=== PATIENT | female | born 1965 | race Caucasian/White ===

== ENCOUNTER 2016-09-18 10:11 | Outpatient (CLI) | payer BC | END 2016-09-18 10:12 | disposition home or self-care (01) | DX: E03.9 Hypothyroidism, unspecified (principal); E78.5 Hyperlipidemia, unspecified; E55.9 Vitamin D deficiency, unspecified ==

== ENCOUNTER 2017-05-12 08:09 | Outpatient (CLI) | payer BC ==
--- NOTE | 2017-05-13 02:35 | Ultrasound Report ---
EXAM: PELVIC ULTRASOUND EXAM DATE: 05/12/2017 09:39 AM. CLINICAL HISTORY: Menorrhagia. COMPARISON: 11/26/2013. TECHNIQUE: Realtime transabdominal pelvic scan performed to identify the uterus and adnexa and as an overview of other pelvic structures, followed by transvaginal scan to provide greater detail of the u terus and adnexa, with static image documentation. FINDINGS: Uterus: 9.4 x 3.4 x 5.3 cm, volume 90 cc. Anteverted position. Normal overall size and echotexture. Masses: None. Endometrium: 4 mm. Normal. Cervix: Unremarkable. Right Ovary: 3.6 x 1.7 x 1.9 cm, volume 5.9 cc. Normal echotexture and blood flow. Left Ovary: 3.7 x 1.6 x 2.4 cm, volume 7.5 cc. Normal echotexture and blood flow. Free Fluid: None. Other: Study limited by body habitus and bowel gas. IMPRESSION: 1. 4 mm thick endometrium. No focal mass or polyp. 2. No uterine fibroids. 3. Normal bilateral ovaries. No concerning adnexal findings. [facility] Referring Provider Line: [phone] SITE ID: [id number]
== END 2017-05-12 08:10 | disposition home or self-care (01) ==
LOC: DI 08:09
PROVIDERS: ATTEND Physician Assistant Medical
DX: N92.0 Excessive and frequent menstruation with regular cycle (principal); R93.8 Abnormal findings on diagnostic imaging of other specified body structures
CPT/HCPCS: 76830; 76856

== ENCOUNTER 2017-06-22 09:17 | Outpatient (CLI) | payer BC ==
--- NOTE | 2017-06-25 13:34 | Mammography Report ---
DIGITAL SCREENING MAMMOGRAM: 06/22/2017 CLINICAL INDICATION: A 51-year-old with history of implants for screening. TECHNIQUE: Routine CC and MLO projections were obtained of the breasts as well as bilateral implant displaced views. COMPARISON: 09/2015, 03/2013, 12/2011, 11/2010, 11/2009 FINDINGS: The breasts again demonstrate scattered fibroglandular densities bilaterally. Bilateral s ubglandular silicone implants are stable. No suspicious masses, clustered microcalcifications, or re gions of architectural distortion are identified. IMPRESSION: BENIGN FINDINGS. RECOMMENDATION: Routine annual screening unless otherwise clinically indicated. BIRADS CATEGORY 2 - BENIGN FINDINGS. STANDARD QUALIFYING STATEMENTS 1. This examination was reviewed with the aid of Computer-Aided Detection (CAD). 2. A negative or benign imaging report should not delay biopsy if clinically suspicious findings are present. Consider surgical consultation if warranted. More than 5% of cancers are not identified by i maging. 3. Dense breasts may obscure an underlying neoplasm. JOB #: [id number] EXT JOB #:[id number]
== END 2017-06-22 09:18 | disposition home or self-care (01) ==
LOC: DI.S 09:17
PROVIDERS: ATTEND Physician Assistant Medical
DX: Z12.31 Encounter for screening mammogram for malignant neoplasm of breast (principal); Z98.82 Breast implant status
CPT/HCPCS: 77067

== ENCOUNTER 2017-07-19 08:59 | Outpatient (CLI) | payer BC ==
[2017-07-19 12:29] LABS: ALBUMIN/GLOBULIN RATIO 1.1 (1.0-2.2); BILIRUBIN,TOTAL 0.5 mg/dL (0.2-1.0); BUN - BLOOD UREA NITROGEN 13 mg/dL (6-20); CALCIUM 9.1 mg/dL (8.5-10.3); CARBON DIOXIDE - CO2 25 mmol/L (21-32); CHLORIDE 102 mmol/L (101-111); CHOL/HDL RATIO 4.1 (<4.4); CHOLESTEROL 215 mg/dL; CREATININE 0.7 mg/dL (0.4-1.0); GFR - MDRD 89 (>89); GLUCOSE 110 mg/dL (70-100); HDL CHOLESTEROL 52 mg/dL; LDL/HDL RATIO 2.5 (<4.4); POTASSIUM 3.9 mmol/L (3.5-5.0); SODIUM 136 mmol/L (135-145); TOTAL PROTEIN 7.5 g/dL (6.7-8.2); TRIGLYCERIDES 168 mg/dL; VLDL CHOLESTEROL 34 mg/dL
== END 2017-07-19 09:00 | disposition home or self-care (01) ==
LOC: LAB.F 08:59
PROVIDERS: ATTEND Family Medicine
DX: Z00.00 Encounter for general adult medical examination without abnormal findings (principal); E78.5 Hyperlipidemia, unspecified; E55.9 Vitamin D deficiency, unspecified; E03.9 Hypothyroidism, unspecified
CPT/HCPCS: 36415; 80053; 80061; 82306; 84443

== ENCOUNTER 2018-04-03 07:54 | Outpatient (CLI) | payer BC ==
[2018-04-03 11:50] LABS: BASOPHILS % (AUTO) 0.6 %; EOSINOPHILS # (AUTO) 0.1 10^3/uL (0.0-0.7); EOSINOPHILS % (AUTO) 1.8 %; HGB - HEMOGLOBIN 13.5 g/dL (12.0-16.0); LYMPHOCYTES # (AUTO) 2.6 10^3/uL (1.5-3.5); LYMPHOCYTES % (AUTO) 33.6 %; MEAN CORPUSCULAR HEMOGLOBIN 30.8 pg (27.0-31.0); MEAN CORPUSCULAR HGB CONC 32.5 g/dL (32.0-36.0); MEAN CORPUSCULAR VOLUME 94.6 fL (81.0-99.0); MEAN PLATELET VOLUME 8.1 fL (7.9-10.8); MONOCYTES # (AUTO) 0.5 10^3/uL (0.0-1.0); MONOCYTES % (AUTO) 6.1 %; NEUTROPHILS # (AUTO) 4.6 10^3/uL (1.5-6.6); NEUTROPHILS % (AUTO) 57.9 %; PLT - PLATELET COUNT 274 10^3/uL (130-450); RED BLOOD COUNT 4.39 10^6/uL (4.20-5.40); RED CELL DISTRIBUTION WIDTH 13.3 % (12.0-15.0); WHITE BLOOD COUNT 7.9 x10^3/uL (4.8-10.8)
[2018-04-03 12:43] LABS: ALBUMIN 3.9 g/dL (3.2-5.5); ALBUMIN/GLOBULIN RATIO 1.2 (1.0-2.2); ALKALINE PHOSPHATASE 43 IU/L (42-121); ALT ALANINE AMINOTRANSFERASE 18 IU/L (10-60); AST ASPARTATE AMINOTRANSFERASE 17 IU/L (10-42); BILIRUBIN,TOTAL 0.6 mg/dL (0.2-1.0); BUN - BLOOD UREA NITROGEN 11 mg/dL (6-20); CALCIUM 9.1 mg/dL (8.5-10.3); CARBON DIOXIDE - CO2 28 mmol/L (21-32); CHLORIDE 101 mmol/L (101-111); CHOL/HDL RATIO 3.6 (<4.4); CHOLESTEROL 189 mg/dL; CREATININE 0.7 mg/dL (0.4-1.0); GFR - MDRD 89 (>89); GLUCOSE 104 mg/dL (70-100); HDL CHOLESTEROL 52 mg/dL; LDL CHOLESTEROL,CALCULATED 99 mg/dL; LDL/HDL RATIO 1.9 (<4.4); SODIUM 137 mmol/L (135-145); TOTAL PROTEIN 7.2 g/dL (6.7-8.2); VLDL CHOLESTEROL 38 mg/dL
== END 2018-04-03 07:55 | disposition home or self-care (01) ==
LOC: LAB.F 07:54
PROVIDERS: ATTEND Physician Assistant Medical
DX: E78.5 Hyperlipidemia, unspecified (principal); E55.9 Vitamin D deficiency, unspecified; E03.9 Hypothyroidism, unspecified; Z51.81 Encounter for therapeutic drug level monitoring
CPT/HCPCS: 36415; 80053; 80061; 82306; 83721; 84443; 85025

== ENCOUNTER 2018-06-24 14:47 | Outpatient (CLI) | payer BC | END 2018-06-24 14:48 | disposition home or self-care (01) | LOC: SC 14:47 | PROVIDERS: ATTEND Internal Medicine Pulmonary Disease | DX: G47.10 Hypersomnia, unspecified (principal); R06.83 Snoring; R41.89 Other symptoms and signs involving cognitive functions and awareness; G47.8 Other sleep disorders | CPT/HCPCS: 99203; 99212 ==

== ENCOUNTER 2018-08-05 19:37 | Outpatient (CLI) | payer BC | END 2018-08-05 19:38 | disposition home or self-care (01) | LOC: SC 19:37 | PROVIDERS: ATTEND Internal Medicine Pulmonary Disease | DX: G47.33 Obstructive sleep apnea (adult) (pediatric) (principal) | CPT/HCPCS: 95810 ==

== ENCOUNTER 2018-08-21 09:09 | Outpatient (CLI) | payer BC | END 2018-08-21 09:10 | disposition home or self-care (01) | LOC: SC 09:09 | PROVIDERS: ATTEND Nurse Practitioner Family | DX: G47.33 Obstructive sleep apnea (adult) (pediatric) (principal) | CPT/HCPCS: 99212; 99214 ==

== ENCOUNTER 2018-10-16 08:13 | Outpatient (CLI) | payer BC | END 2018-10-16 08:14 | disposition home or self-care (01) | LOC: SC 08:13 | PROVIDERS: ATTEND Nurse Practitioner Family | DX: G47.33 Obstructive sleep apnea (adult) (pediatric) (principal) | CPT/HCPCS: 99212; 99214 ==

== ENCOUNTER 2019-01-15 08:17 | Outpatient (CLI) | payer BC | END 2019-01-15 08:18 | disposition home or self-care (01) | LOC: SC 08:17 | PROVIDERS: ATTEND Nurse Practitioner Family | DX: G47.33 Obstructive sleep apnea (adult) (pediatric) (principal) | CPT/HCPCS: 99212; 99214 ==

== ENCOUNTER 2019-05-21 08:00 | Outpatient (CLI) | payer BC ==
[2019-05-21 10:13] LABS: BASOPHILS % (AUTO) 0.6 %; EOSINOPHILS # (AUTO) 0.2 10^3/uL (0.0-0.7); EOSINOPHILS % (AUTO) 2.3 %; HGB - HEMOGLOBIN 11.7 g/dL (12.0-16.0); LYMPHOCYTES # (AUTO) 2.6 10^3/uL (1.5-3.5); LYMPHOCYTES % (AUTO) 37.7 %; MEAN CORPUSCULAR HEMOGLOBIN 29.4 pg (27.0-31.0); MEAN CORPUSCULAR HGB CONC 31.5 g/dL (32.0-36.0); MEAN CORPUSCULAR VOLUME 93.2 fL (81.0-99.0); MEAN PLATELET VOLUME 10.8 fL (7.9-10.8); MONOCYTES # (AUTO) 0.4 10^3/uL (0.0-1.0); MONOCYTES % (AUTO) 5.4 %; NEUTROPHILS # (AUTO) 3.7 10^3/uL (1.5-6.6); NEUTROPHILS % (AUTO) 53.7 %; PLT - PLATELET COUNT 303 10^3/uL (130-450); RED BLOOD COUNT 3.98 10^6/uL (4.20-5.40); RED CELL DISTRIBUTION WIDTH 14.4 % (12.0-15.0); WHITE BLOOD COUNT 6.8 x10^3/uL (4.8-10.8)
[2019-05-21 10:30] LABS: BUN - BLOOD UREA NITROGEN 11 mg/dL (6-20); CALCIUM 9.1 mg/dL (8.5-10.3); CARBON DIOXIDE - CO2 29 mmol/L (21-32); CHLORIDE 103 mmol/L (101-111); CHOL/HDL RATIO 3.4 (<4.4); CHOLESTEROL 120 mg/dL; CREATININE 0.6 mg/dL (0.4-1.0); GFR - MDRD 105 (>89); GLUCOSE 91 mg/dL (70-100); HDL CHOLESTEROL 35 mg/dL; LDL CHOLESTEROL,CALCULATED 69 mg/dL; SODIUM 138 mmol/L (135-145); VLDL CHOLESTEROL 16 mg/dL
[2019-05-21 11:11] LABS: HB2 TOTAL 11.7 g/dL; HEMOGLOBIN A1C 0.45 g/dL; HEMOGLOBIN A1C % 5.7 % (4.6-6.2)
== END 2019-05-21 08:01 | disposition home or self-care (01) ==
LOC: LAB.S 08:00
PROVIDERS: ATTEND Physician Assistant Medical
DX: E78.5 Hyperlipidemia, unspecified (principal); Z51.81 Encounter for therapeutic drug level monitoring; Z79.899 Other long term (current) drug therapy; R73.01 Impaired fasting glucose; E03.9 Hypothyroidism, unspecified
CPT/HCPCS: 36415; 80048; 80061; 83036; 83721; 84443; 85025

== ENCOUNTER 2019-05-28 08:15 | Outpatient (CLI) | payer BC ==
[2019-05-28 09:10] VITALS: BP 104/70
--- NOTE | 2019-05-28 09:10 | SLEEP CARE CONSULTATION ---
Information from patient questionnaire entered by Arianna Ocampo. I have reviewed and concur with the information entered by Arianna Ocampo. This document represents the service I personally performed and the decisions made by me, Hamida Darnell, RN, MSN, SOCIAL STUDIES TEACHER. History of Present Illness Previous diagnosis: Severe, Obstructive Sleep Apnea-Hypopnea Syndrome AHI: 55.9 Reason for CPAP/BiPAP follow up: other (4 month) Equipment type: CPAP Equipment obtained from: [employer] Mask style: Nasal pillows Mask brand: Respironics Backup mask available: Yes Last cushion change: a few weeks ago HPI additional information: Camping adaptors for CPAP worked successfully. The patient is starting to notice some facial pressure in mornings after using CPAP for the past week. CPAP Compliance Data - Data Reviewed with Patient Average duration of nightly device use: 5.7 Compliance rate %: 85.6 (90 days) Current pressure setting (cmH2O): 8-12 Humidity settin Heated hose settin Average residual AHI: 2.0 Subjective Missed days of use due to: reports: travel, other (falling asleep after cuddling with spouse or forgetting to put mask on after using bathroom) Patient concerns: reports: other (sinus pressure in the AM). denies: aerop hagia, mask discomfort, air blowing in eyes, mask leak noise, condensation in mask/hose, nasal congestion, dry mouth, nose, throat, epistaxis Observed to snore while using device: No Current pressure setting perceived as: comfortable On therapy, patient: reports: sleeping better, awakening more refreshed, being more awake and alert during the day, more rested overall. denies: drowsiness while driving Initial [place] Sleepiness Scale score: 15 Current [place] Sleepiness Scale score: 8 Allergies and Home Medications Known drug allergies: Yes (sulfa) Home medication list reviewed: Yes Allergy and home medication list: Medication Name (generic/name brand) Strength & Dosage Zoloft 75mg tab one daily unknown medication for gallbladder to prevent gallstones Zocor (Simvastatin) 20mg tab one daily Abilify 5mg tab one daily Levothyroxine Sodium 137mcg tab one daily Vitamin D3 5000unit cap one daily Vitamin B-12 5000mcg once weekly doxycyline for rosacea 100mg bid ? calcium chewable bid Acidophilus probiotic daily Allergy List Sulfa Review of Systems Review of systems same as previous: Yes Physical Exam Blood Pressure: 104/70 Cuff size: long Heart Rate: 98 O2 Saturation: 60 Height: 5 ft 5.5 in Weight (kg): 213 lb 6.4 oz Weight change since last visit: lost 42 pounds Body Mass Index: 34.9 BMI Classification: Class 1 Impression and Plan 1. Obstructive Sleep Apnea-Hypopnea Syndrome, severe, with good treatment compliance and good apnea control. On CPAP therapy, the patient has better sleep quality and is more rested overall. Since she has lost significantly more weight and is noting pressure discomfort in sinuses, I will lower range of autoCPAP to [id number]. Her mean pressure now is 8.4cmH20 with 90% of 9.2cmH20. She is advised to contact me if the pressure change uncomfortable. She is feeling even more energetic with the continued weight loss. Since she is continuing to lose weight with goal of 60 more pounds, I will see her in 3 months for further adjustment of pressure. Symptoms to report discussed for earlier pressure adjustment. To prevent falling asleep without CPAP cuddling , I proposed a cuddling alarm. In addition, to prevent falling asleep after using the bathroom, she can put mask on pillow. Patient's apnea severity and rationale for treatment to reduce apnea, improve sleep quality and reduce cardiovascular and cerebrovascular events was reviewed. I also reviewed the benefit of consistent device use of CPAP for depression/anxiety. I again reviewed her sleep study results and she has significant oxygen desaturation in REM sleep thus advised to use CPAP with all sleep. * * Change CPAP pressure to 6-10 cmH2O * Notify me if snoring with mask or feeling that the pressure is too much or too little * Attempt to lose weight * Return for follow up in 3 months , or sooner if concerns arise I spent 100% of this 35 minute visit face to face with the patient with greater than 50% of this was spent time counseling the patient and coordination of care.
== END 2019-05-28 08:16 | disposition home or self-care (01) ==
LOC: SC 08:15
PROVIDERS: ATTEND Nurse Practitioner Family
DX: G47.33 Obstructive sleep apnea (adult) (pediatric) (principal)
CPT/HCPCS: 99212; 99214

== ENCOUNTER 2019-07-09 08:07 | Outpatient (CLI) | payer BC ==
[2019-07-09 10:35] LABS: BASOPHILS % (AUTO) 0.7 %; EOSINOPHILS # (AUTO) 0.1 10^3/uL (0.0-0.7); EOSINOPHILS % (AUTO) 1.8 %; HGB - HEMOGLOBIN 11.4 g/dL (12.0-16.0); LYMPHOCYTES # (AUTO) 2.3 10^3/uL (1.5-3.5); LYMPHOCYTES % (AUTO) 41.1 %; MEAN CORPUSCULAR HEMOGLOBIN 30.2 pg (27.0-31.0); MEAN CORPUSCULAR HGB CONC 31.7 g/dL (32.0-36.0); MEAN CORPUSCULAR VOLUME 95.5 fL (81.0-99.0); MEAN PLATELET VOLUME 10.3 fL (7.9-10.8); MONOCYTES # (AUTO) 0.3 10^3/uL (0.0-1.0); MONOCYTES % (AUTO) 4.8 %; NEUTROPHILS # (AUTO) 2.9 10^3/uL (1.5-6.6); NEUTROPHILS % (AUTO) 51.4 %; PLT - PLATELET COUNT 280 10^3/uL (130-450); RED BLOOD COUNT 3.77 10^6/uL (4.20-5.40); RED CELL DISTRIBUTION WIDTH 13.2 % (12.0-15.0); WHITE BLOOD COUNT 5.7 x10^3/uL (4.8-10.8)
[2019-07-09 11:22] LABS: FERRITIN 38.8 ng/mL (11.0-306.8)
[2019-07-09 11:36] LABS: HB2 TOTAL 11.6 g/dL; HEMOGLOBIN A1C 0.37 g/dL; HEMOGLOBIN A1C % 5.1 % (4.6-6.2)
[2019-07-09 11:49] LABS: ALBUMIN 3.8 g/dL (3.2-5.5); ALBUMIN/GLOBULIN RATIO 1.3 (1.0-2.2); ALKALINE PHOSPHATASE 64 IU/L (42-121); ALT ALANINE AMINOTRANSFERASE 14 IU/L (10-60); AST ASPARTATE AMINOTRANSFERASE 14 IU/L (10-42); BILIRUBIN,TOTAL 0.5 mg/dL (0.2-1.0); BUN - BLOOD UREA NITROGEN 12 mg/dL (6-20); CALCIUM 8.7 mg/dL (8.5-10.3); CARBON DIOXIDE - CO2 26 mmol/L (21-32); CHLORIDE 104 mmol/L (101-111); CHOL/HDL RATIO 3.4 (<4.4); CHOLESTEROL 124 mg/dL; CREATININE 0.5 mg/dL (0.4-1.0); GFR - MDRD 130 (>89); GLUCOSE 90 mg/dL (70-100); HDL CHOLESTEROL 37 mg/dL; IRON 72 ug/dL (28-170); LDL CHOLESTEROL,CALCULATED 72 mg/dL; LDL/HDL RATIO 1.9 (<4.4); SODIUM 138 mmol/L (135-145); TOTAL PROTEIN 6.7 g/dL (6.7-8.2); VLDL CHOLESTEROL 15 mg/dL
[2019-07-09 14:47] LABS: % IRON SATURATION 24 % (20-50); TOTAL IRON BINDING CAPACITY 308 ug/dL (250-450); TRANSFERRIN 220 mg/dL (192-382)
== END 2019-07-09 08:08 | disposition home or self-care (01) ==
LOC: LAB.S 08:07
PROVIDERS: ATTEND Nurse Practitioner Family
DX: K91.2 Postsurgical malabsorption, not elsewhere classified (principal)
CPT/HCPCS: 36415; 80053; 80061; 82306; 82607; 82728; 82747; 83036; 83540; 83721; 83970; 84425; 84443; 84466; 84590; 85025

== ENCOUNTER 2020-01-19 14:23 | Outpatient (CLI) | payer BC ==
--- NOTE | 2020-01-19 13:51 | SLEEP CARE CONSULTATION ---
Information from patient questionnaire entered by Katherine Worthington. I have reviewed and concur with the information entered by Katherine Worthington. This document represents the service I personally performed and the decisions made by me, Hamida Darnell, RN, MSN, REAL PROPERTY APPRAISER. History of Present Illness Service Date and Time: 01/19/2020 1330 Previous diagnosis: Severe, Obstructive Sleep Apnea-Hypopnea Syndrome AHI: 55.9 Reason for follow up: other (8 MONTH WITH PRESSURE CHANGE) Equipment type: CPAP Equipment obtained from: [employer] (getting supplies as needed) Mask style: Nasal pillows Backup mask available: Yes (old mask ) Last cushion change: 2 days agao CPAP Compliance Data - Data Reviewed with Patient Average duration of nightly device use: 6H 6M Compliance rate %: 82.2 Current pressure setting (cmH2O): 6-10 Humidity settin Heated hose settin Average residual AHI: 1.4 Average large leak: 1M 59S Subjective Patient concerns: denies: aerophagia, mask discomfort, air blowing in eyes, mask leak noise, condensation in mask/hose, nasal congestion, dry mouth, nose, throat, epistaxis, other Observed to snore while using device: No Current pressure setting perceived as: comfortable On therapy, patient: reports: sleeping better, awakening more refreshed, being more awake and alert during the day, more rested overall, other. denies: drowsiness while driving Initial [place] Sleepiness Scale score: 15 Current [place] Sleepiness Scale score: 7 Allergies and Home Medications Home medication list reviewed: No (no changes) Review of Systems Review of systems same as previous: Yes Physical Exam Height: 5 ft 5.5 in Weight: 204 lb (home weight ) Body Mass Index: 33.4 BMI Classification: Obese Impression and Plan 1. Obstructive Sleep Apnea-Hypopnea Syndrome, severe, with good treatment compliance and good apnea control. On CPAP therapy, the patient has better sleep quality and is more rested overall. Patient has lost 85 pounds in the past year after bariatric surgery. I discussed how significant weight loss affects her apnea risk and CPAP pressure requirements. Current pressure range should accommodate some weight loss. Symptoms to report for further PAP pressure adjustment discussed. I praised her weight loss. She is aware how obesity can also affect health risks. Patient's apnea severity and rationale for treatment to reduce apnea, improve sleep quality and reduce hypertension, cardiovascular and cerebrovascular events was reviewed. * Continue auto CPAP pressure at 6-10 cmH2O * Notify me if snoring with mask or feeling that the pressure is too much or too little * Continue to lose weight * Call this office if any problems using CPAP * Return for follow up in 1 year , or sooner if concerns arise Visit Type: Telehealth Phone Provider Statement: I spent 100% of the Telehealth Phone Call with the patient with greater than 50% spent counseling the patient and coordination of care.
== END 2020-01-19 14:24 | disposition home or self-care (01) ==
LOC: SC 14:23
PROVIDERS: ATTEND Nurse Practitioner Family
DX: G47.33 Obstructive sleep apnea (adult) (pediatric) (principal); E66.9 Obesity, unspecified; Z68.33 Body mass index [BMI] 33.0-33.9, adult

== ENCOUNTER 2020-10-04 07:55 | Outpatient (CLI) | payer BC ==
[2020-10-04 15:18] LABS: BASOPHILS % (AUTO) 0.5 %; EOSINOPHILS # (AUTO) 0.1 10^3/uL (0.0-0.7); EOSINOPHILS % (AUTO) 1.2 %; HGB - HEMOGLOBIN 12.1 g/dL (12.0-16.0); LYMPHOCYTES # (AUTO) 2.3 10^3/uL (1.5-3.5); LYMPHOCYTES % (AUTO) 37.4 %; MEAN CORPUSCULAR HEMOGLOBIN 29.7 pg (27.0-31.0); MEAN CORPUSCULAR VOLUME 95.6 fL (81.0-99.0); MEAN PLATELET VOLUME 10.3 fL (7.9-10.8); MONOCYTES # (AUTO) 0.3 10^3/uL (0.0-1.0); MONOCYTES % (AUTO) 5.6 %; NEUTROPHILS # (AUTO) 3.4 10^3/uL (1.5-6.6); NEUTROPHILS % (AUTO) 55.1 %; PLT - PLATELET COUNT 282 10^3/uL (130-450); RED BLOOD COUNT 4.08 10^6/uL (4.20-5.40); RED CELL DISTRIBUTION WIDTH 12.5 % (12.0-15.0); WHITE BLOOD COUNT 6.1 x10^3/uL (4.8-10.8)
[2020-10-04 15:56] LABS: FERRITIN 8.8 ng/mL (11.0-306.8)
[2020-10-04 15:59] LABS: ALBUMIN 3.9 g/dL (3.2-5.5); ALBUMIN/GLOBULIN RATIO 1.3 (1.0-2.2); BILIRUBIN,TOTAL 0.5 mg/dL (0.2-1.0); CALCIUM 8.9 mg/dL (8.5-10.3); CREATININE 0.6 mg/dL (0.4-1.0); TOTAL PROTEIN 6.8 g/dL (6.7-8.2)
== END 2020-10-04 07:56 | disposition home or self-care (01) ==
LOC: LAB.S 07:55
PROVIDERS: ATTEND Nurse Practitioner Family
DX: K91.2 Postsurgical malabsorption, not elsewhere classified (principal)
CPT/HCPCS: 36415; 80053; 82306; 82390; 82525; 82607; 82728; 82747; 83540; 83970; 84425; 84466; 84590; 84630; 85025

== ENCOUNTER 2020-10-15 11:58 | Outpatient (CLI) | payer BC ==
[2020-10-15 16:09] LABS: CALCIUM 9.1 mg/dL (8.5-10.3); CREATININE 0.8 mg/dL (0.4-1.0)
== END 2020-10-15 11:59 | disposition home or self-care (01) ==
LOC: LAB.S 11:58
PROVIDERS: ATTEND Nurse Practitioner Family
DX: K91.2 Postsurgical malabsorption, not elsewhere classified (principal); R79.89 Other specified abnormal findings of blood chemistry
CPT/HCPCS: 36415; 80048

== ENCOUNTER 2020-10-18 08:00 | Outpatient (CLI) | payer BC, OTHER ==
--- NOTE | 2020-10-19 12:55 | XRAY Report ---
PROCEDURE: Cervical Spine 2 View INDICATIONS: STRAIN OF MUSCLE AND TENDON OF THE NECK TECHNIQUE: 3 view(s) of the cervical spine were acquired. COMPARISON: None. FINDINGS: Bones: No fractures or dislocations to the T1 level. The lateral masses of C1 appear intact on the odontoid view. No suspicious bony lesions. Mild C5-C6 and C6-C7 degenerative disc disease. Soft tissues: No prevertebral soft tissue swelling. IMPRESSION: 1. Mild C5-C6 and C6-7 C7 degenerative disc disease. 2. No fracture. No acute osseous lesion. If there is continued clinical concern for pathology, then M RI should be considered for further evaluation. Reviewed by: Gwen Vasquez MD, PhD on 10/19/2020 12:54 PM PST Approved by: Gwen Vasquez MD, PhD on 10/19/2020 12:54 PM PST Station ID: [id number]
--- NOTE | 2020-10-19 12:57 | XRAY Report ---
PROCEDURE: Thoracic Spine 2 View INDICATIONS: STRAIN OF MUSCLE AND TENDON OF NECK TECHNIQUE: 3 views of the thoracic spine were acquired. COMPARISON: None. FINDINGS: Bones: No fractures or dislocations. No suspicious bony lesions. 12 pairs of ribs are noted, and a ppear intact where visualized. Mild mid thoracic spine degenerative disc disease. Soft tissues: No paravertebral stripe thickening. IMPRESSION: 1. Mild mid thoracic spine multilevel degenerative disc disease. 2. No fracture. No acute osseous lesion. If there is continued clinical concern for pathology, then M RI should be considered for further evaluation. Reviewed by: Gwen Vasquez MD, PhD on 10/19/2020 12:56 PM PST Approved by: Gwen Vasquez MD, PhD on 10/19/2020 12:56 PM PST Station ID: [id number]
== END 2020-10-18 23:59 | disposition home or self-care (01) ==
LOC: DI.S 08:00
PROVIDERS: ATTEND Emergency Medicine
DX: M51.34 Other intervertebral disc degeneration, thoracic region (principal); M50.322 Other cervical disc degeneration at C5-C6 level

== ENCOUNTER 2020-11-26 07:19 | Outpatient (CLI) | payer BC ==
[2020-11-26 15:17] LABS: BASOPHILS % (AUTO) 0.5 %; EOSINOPHILS # (AUTO) 0.1 10^3/uL (0.0-0.7); EOSINOPHILS % (AUTO) 1.2 %; HCT - HEMATOCRIT 40.1 % (37.0-47.0); HGB - HEMOGLOBIN 12.6 g/dL (12.0-16.0); LYMPHOCYTES # (AUTO) 2.2 10^3/uL (1.5-3.5); LYMPHOCYTES % (AUTO) 38.5 %; MEAN CORPUSCULAR HEMOGLOBIN 29.9 pg (27.0-31.0); MEAN CORPUSCULAR HGB CONC 31.4 g/dL (32.0-36.0); MEAN PLATELET VOLUME 10.5 fL (7.9-10.8); MONOCYTES # (AUTO) 0.3 10^3/uL (0.0-1.0); MONOCYTES % (AUTO) 5.4 %; NEUTROPHILS # (AUTO) 3.1 10^3/uL (1.5-6.6); NEUTROPHILS % (AUTO) 54.2 %; PLT - PLATELET COUNT 278 10^3/uL (130-450); RED BLOOD COUNT 4.22 10^6/uL (4.20-5.40); RED CELL DISTRIBUTION WIDTH 12.8 % (12.0-15.0); WHITE BLOOD COUNT 5.7 x10^3/uL (4.8-10.8)
[2020-11-26 16:15] LABS: THYROID STIMULATING HORMONE 2.85 uIU/mL (0.34-5.60)
[2020-11-26 16:21] LABS: FERRITIN 10.3 ng/mL (11.0-306.8)
== END 2020-11-26 07:20 | disposition home or self-care (01) ==
LOC: LAB.S 07:19
PROVIDERS: ATTEND Nurse Practitioner Family
DX: K91.2 Postsurgical malabsorption, not elsewhere classified (principal); E03.9 Hypothyroidism, unspecified; R79.0 Abnormal level of blood mineral
CPT/HCPCS: 36415; 82306; 82728; 83540; 84443; 85025

== ENCOUNTER 2021-02-04 08:12 | Outpatient (CLI) | payer BC ==
--- NOTE | 2021-02-04 08:25 | SLEEP CARE CONSULTATION ---
Information from patient questionnaire entered by Arianna Ocampo. I have reviewed and concur with the information entered by Arianna Ocampo. This document represents the service I personally performed and the decisions made by , Ana Abdi ARNP. History of Present Illness Service Date and Time: 02/04/2021 0820 Previous diagnosis: Severe, Obstructive Sleep Apnea-Hypopnea Syndrome AHI: 55.9 (in 2018) Reason for follow up: annual (last seen 01/2020) Equipment type: CPAP Equipment obtained from: [employer] (getting supplies as needed) Mask style: Nasal pillows Backup mask available: Yes (old mask) Last cushion change: few days ago Prior sleep studies: Yes Year and Where: 2018 - [facility] Type of Sleep Study: Polysomnography HPI additional information: JAYDE VALLE was diagnosed to have severe, AHI 55.9, obstructive sleep apnea-hypopnea syndrome and returns via Telehealth visit today for CPAP therapy annual follow-up. CPAP Compliance Data - Data Reviewed with Patient Average duration of nightly device use: 6 hr 38 min Compliance rate %: 95 (180 days) Current pressure setting (cmH2O): 6-10 Humidity settin Heated hose settin Average residual AHI: 1.6 Central apnea: 0.2 Obstructive apnea: 0.4 Average large leak: 0 Subjective Patient concerns: reports: other (flatus at night). denies: aerophagia, mask discomfort, air blowing in eyes, mask leak noise, condensation in mask/hose, nasal congestion, dry mouth, nose, throat, epistaxis Observed to snore while using device: No Current pressure setting perceived as: comfortable On therapy, patient: reports: sleeping better, awakening more refreshed, being more awake and alert during the day, more rested overall. denies: drowsiness while driving Initial [place] Sleepiness Scale score: 15 (in 2018) Current [place] Sleepiness Scale score: 9 Allergies and Home Medications Home medication list reviewed: Yes (no changes) Review of Systems Review of systems same as previous: Yes (no changes) Physical Exam Height: 5 ft 5.5 in Impression and Plan 1. Obstructive Sleep Apnea-Hypopnea Syndrome, severe, with good treatment compliance and good apnea control. On CPAP therapy, the patient has better sleep quality and is more rested overall. She has significant improvement of her sleep apnea and is satisfied with her treatment. She plans on using the CPAP long- term. She has no issues or concerns with CPAP use today. Patient's apnea severity and rationale for treatment to reduce apnea, improve sleep quality and reduce cardiovascular and cerebrovascular events was reviewed. I also reviewed the benefit of consistent device use of CPAP for depression/anxiety. * Continue auto CPAP pressure at 6-10 cmH2O * Notify me if snoring with mask or feeling that the pressure is too much or too little * Attempt to lose weight * Call this office if any problems using CPAP * Return for follow up in 1 year, or sooner if concerns arise Counseling Topics: Spare mask, Weight loss health impact Visit Type: Telehealth Video Video Type: VSee Patient Location: Car Location of Provider: Office Patient agrees and consents to this telehealth visit type: Yes Time Spent with Patient (minutes): 13 Provider Statement: I spent 100% of the Telehealth Video Call with the patient with greater than 50% spent counseling the patient and coordination of care.
== END 2021-02-04 08:13 | disposition home or self-care (01) ==
LOC: SC 08:12
PROVIDERS: ATTEND Nurse Practitioner Family
DX: G47.33 Obstructive sleep apnea (adult) (pediatric) (principal)

== ENCOUNTER 2021-05-26 07:16 | Outpatient (CLI) | payer BC ==
[2021-05-26 15:46] LABS: THYROID STIMULATING HORMONE 4.97 uIU/mL (0.34-5.60)
== END 2021-05-26 07:17 | disposition home or self-care (01) ==
LOC: LAB.S 07:16
PROVIDERS: ATTEND Registered Nurse
DX: E03.9 Hypothyroidism, unspecified (principal)
CPT/HCPCS: 36415; 84443

== ENCOUNTER 2021-09-11 12:29 | Outpatient (CLI) | payer BC, OTHER ==
--- NOTE | 2021-09-13 14:36 | Mammography Report ---
BILATERAL DIGITAL SCREENING MAMMOGRAM 3D/2D WITH AUGMENTATION: 09/11/2021 CLINICAL: Routine screening. Family history of breast cancer. Comparison is made to exams dated: 06/22/2017 mammogram and 09/27/2015 mammogram - [facility]. There are scattered fibroglandular elements in both breasts. Bilateral breast implants are stable. No significant masses, calcifications, or other findings are seen in either breast. There has been no significant interval change. IMPRESSION: NEGATIVE There is no mammographic evidence of malignancy. A 1 year screening mammogram is recommended. This exam was interpreted at Station ID: [id number]. NOTE: For mammograms, a report in lay terms will be sent to the patient. Approximately 15% of breast malignancies will not be visualized mammographically. In the management of a palpable breast mass, a negative mammogram must not discourage biopsy of a clinically suspicious lesion. Electronically Signed By: Chirag Cunha M.D. ar/penrad:09/12/2021 08:04:01 ACR BI-RADS Category 1: Negative 3341F PARENCHYMAL PATTERN: (A) - The breast(s) demonstrate(s) scattered fibroglandular densities. BI-RADS CATEGORY: (1) - 1 RECOMMENDATION: (ANNUAL) - Recommend routine annual screening mammography. [id number] 1 year screening LATERALITY: (B)
== END 2021-09-11 12:30 | disposition home or self-care (01) ==
LOC: DI.S 12:29
DX: Z12.31 Encounter for screening mammogram for malignant neoplasm of breast (principal); Z80.3 Family history of malignant neoplasm of breast

== ENCOUNTER 2021-09-22 08:00 | Outpatient (CLI) | payer BC, OTHER ==
--- NOTE | 2021-09-22 18:01 | XRAY Report ---
PROCEDURE: Abdomen 2 View X-Ray INDICATIONS: ABDOMINAL MASS TECHNIQUE: 2 views of the abdomen were acquired. COMPARISON: None FINDINGS: Surgical changes and devices: Surgical clips are seen in epigastric region. Bowel: No pneumoperitoneum. The bowel gas pattern is normal. Soft tissues: No masses; visualized solid organ contours appear normal in size. No suspicious abdom inal calcifications. Bones: No suspicious bony abnormalities. IMPRESSION: No evidence of bowel obstruction or gross free air. Reviewed by: Roscoe Scales MD on 09/22/2021 6:00 PM PST Approved by: Roscoe Scales MD on 09/22/2021 6:00 PM [facility] Station ID: [id number]
== END 2021-09-22 23:59 ==
LOC: DI.S 08:00
PROVIDERS: ATTEND Registered Nurse
DX: R19.00 Intra-abdominal and pelvic swelling, mass and lump, unspecified site (principal)

== ENCOUNTER 2021-09-23 16:20 | Outpatient (CLI) | payer BC, OTHER ==
--- NOTE | 2021-09-23 19:17 | Ultrasound Report ---
PROCEDURE: Abdomen Complete INDICATIONS: ABDOMINAL MASS TECHNIQUE: Real-time scanning was performed of the abdominal and retroperitoneal organs, with image documentatio n. COMPARISON: None. FINDINGS: Liver: Liver is normal in size measuring 15.3 cm. In the left lobe there is an 18 x 15 x 12 mm focus of decreased echogenicity. Similar focus is noted within the mid lobe with a septation measuring 18 x 14 x 15 mm. Focus of increased echogenicity is present in the right lower lobe measuring 12 x 11 x 13 mm. Gallbladder: Gallbladder demonstrates no stones. Wall thickness is within normal limits measuring 2 m m. Biliary ducts: Intrahepatic bile ducts are non-dilated. Extrahepatic bile duct caliber measures 2 m m. Normal is 6-7 mm or less in diameter, or 10 mm or less post-cholecystectomy. Pancreas: Visualized portions of the pancreas are sonographically normal. Spleen: Spleen is normal in size and homogeneous in echotexture. Kidneys: Kidneys are normal in size and echotexture. Right kidney measures 11.5 cm long; left kidne y measures 12.2 cm long. No hydronephrosis or nephrolithiasis. No solid masses. Aorta: Visualized aorta is normal in caliber at less than 3 cm. Iliacs: Proximal common iliac arteries are normal in caliber at less than 2.5 cm. IVC: Intrahepatic inferior vena cava is patent. Miscellaneous: No free abdominal fluid. Within the left upper quadrant at the area of palpable conc marian there is a heterogeneous focus of echogenicity measuring 14.4 x 13.1 x 16.5 cm. There are areas o f calcification as well as increased vascularity. No priors are available for comparison. IMPRESSION: 1. Focus of heterogeneous echogenicity with increased vascularity within the left upper quadrant incl uding areas of calcification. Overall appearance is most consistent with a solid mass. Given presence of increased vascularity, finding is concerning and could be related to malignancy. Further evaluati on with CT with contrast is recommended. 2. Foci of decreased echogenicity within the liver most consistent with simple cyst. 3. Focus of increased echogenicity within the liver is present suggestive of hemangioma. Reviewed by: Fara Arroyo MD on 09/23/2021 7:16 PM PST Approved by: Fara Arroyo MD on 09/23/2021 7:16 PM PST Station ID: [id number]
== END 2021-09-23 16:21 | disposition home or self-care (01) ==
LOC: DI 16:20
PROVIDERS: ATTEND Registered Nurse
DX: R19.02 Left upper quadrant abdominal swelling, mass and lump (principal)

== ENCOUNTER 2021-09-26 07:48 | Outpatient (CLI) | payer BC, OTHER ==
[2021-09-26 14:20] LABS: BASOPHILS % (AUTO) 0.5 %; EOSINOPHILS # (AUTO) 0.1 10^3/uL (0.0-0.7); EOSINOPHILS % (AUTO) 1.1 %; HCT - HEMATOCRIT 41.7 % (37.0-47.0); HGB - HEMOGLOBIN 13.2 g/dL (12.0-16.0); LYMPHOCYTES # (AUTO) 2.4 10^3/uL (1.5-3.5); LYMPHOCYTES % (AUTO) 38.9 %; MEAN CORPUSCULAR HEMOGLOBIN 29.3 pg (27.0-31.0); MEAN CORPUSCULAR HGB CONC 31.7 g/dL (32.0-36.0); MEAN CORPUSCULAR VOLUME 92.5 fL (81.0-99.0); MEAN PLATELET VOLUME 10.2 fL (7.9-10.8); MONOCYTES # (AUTO) 0.4 10^3/uL (0.0-1.0); MONOCYTES % (AUTO) 5.7 %; NEUTROPHILS # (AUTO) 3.3 10^3/uL (1.5-6.6); NEUTROPHILS % (AUTO) 53.6 %; PLT - PLATELET COUNT 345 10^3/uL (130-450); RED BLOOD COUNT 4.51 10^6/uL (4.20-5.40); RED CELL DISTRIBUTION WIDTH 12.2 % (12.0-15.0); WHITE BLOOD COUNT 6.2 x10^3/uL (4.8-10.8)
[2021-09-26 14:33] LABS: CALCIUM 8.8 mg/dL (8.5-10.3); CARBON DIOXIDE - CO2 26 mmol/L (21-32); CHLORIDE 104 mmol/L (101-111); GLUCOSE 95 mg/dL (70-100); POTASSIUM 4.1 mmol/L (3.5-5.0); SODIUM 138 mmol/L (135-145)
[2021-09-26 14:52] LABS: THYROID STIMULATING HORMONE 1.94 uIU/mL (0.34-5.60)
[2021-09-26 14:59] LABS: ALBUMIN 3.6 g/dL (3.2-5.5); ALBUMIN/GLOBULIN RATIO 1.1 (1.0-2.2); ALKALINE PHOSPHATASE 71 IU/L (42-121); ALT ALANINE AMINOTRANSFERASE 31 IU/L (10-60); AST ASPARTATE AMINOTRANSFERASE 24 IU/L (10-42); BILIRUBIN,TOTAL 0.5 mg/dL (0.2-1.0); BUN - BLOOD UREA NITROGEN 10 mg/dL (6-20); CHOLESTEROL 128 mg/dL; CREATININE 0.6 mg/dL (0.4-1.0); GFR - MDRD 105 (>89); HDL CHOLESTEROL 43 mg/dL; LDL CHOLESTEROL,CALCULATED 70 mg/dL; LDL/HDL RATIO 1.6 (<4.4); TRIGLYCERIDES 75 mg/dL; VLDL CHOLESTEROL 15 mg/dL
[2021-09-27 09:41] LABS: HEPATITIS C ANTIBODY NON-REACTIVE (NON-REACTIVE)
== END 2021-09-26 07:49 | disposition home or self-care (01) ==
LOC: LAB.S 07:48
PROVIDERS: ATTEND Registered Nurse
DX: Z00.00 Encounter for general adult medical examination without abnormal findings (principal); R73.01 Impaired fasting glucose; E78.5 Hyperlipidemia, unspecified; E03.9 Hypothyroidism, unspecified; F41.9 Anxiety disorder, unspecified
CPT/HCPCS: 36415; 80053; 80061; 83721; 84443; 85025; 86803

== ENCOUNTER 2021-09-27 11:09 | Outpatient (CLI) | payer BC, OTHER ==
[2021-09-27] MEDS ORDERED: iohexoL-300 100 ML VIAL ONE (11:23)
[2021-09-27] MEDS ORDERED: IOPAMIDOL-300 50 ML VIAL ONE (11:23)
--- NOTE | 2021-09-27 13:01 | CT Report ---
PROCEDURE: Abdomen/Pelvis W INDICATIONS: ABDOMINAL MASS CONTRAST: IV CONTRAST: Isovue 300 ml: 100 PO CONTRAST: Isovue 300 ml50 TECHNIQUE: After the administration of intravenous and oral contrast, 5 mm thick sections acquired from the diap hragms to the symphysis. 5 mm thick coronal and sagittal reformats were acquired. For radiation dos e reduction, the following was used: automated exposure control, adjustment of mA and/or kV accordin g to patient size. COMPARISON: CT abdomen and pelvis 11/16/2009. FINDINGS: Image quality: Excellent. ABDOMEN: Lung bases: Lung bases are clear. Heart size is normal. Partially visualized bilateral breast impla nts. Solid organs: Liver is normal in size and enhancement. Small hepatic cysts in the liver. Spleen is normal. Gallbladder is within normal limits. Biliary system is non dilated. Pancreas enhances rocio lly. No adrenal nodules. Kidneys demonstrate normal size and enhancement, without hydronephrosis. Peritoneum and bowel: Postsurgical changes compatible with prior partial gastrectomy. There is a lar ge 12.2 x 17.1 x 16.3 cm soft tissue density mass in the left upper abdomen. Bowel loops demonstrate normal wall thickness and caliber. No free fluid or air. The appendix is normal. Nodes and vessels: No retroperitoneal or mesenteric adenopathy by size criteria. Aorta and inferior vena cava are normal in size. Miscellaneous: No ventral hernias. PELVIS: Genitourinary: Bladder wall thickness is normal. Miscellaneous: No inguinal hernias or adenopathy. Bones: No suspicious bony lesions. Spine degenerative disc disease and facet arthropathy are noted. No vertebral body compression fractures. IMPRESSION: 1. Status post partial gastrectomy. 2. Large 12.2 x 17.1 x 16.3 cm left upper abdomen soft tissue density mass. Given size and location t he lesion may represent a gastrointestinal stromal tumor (GIST), however lesion has nonspecific imagi ng characteristics and other etiologies including adenocarcinoma and sarcoma cannot be differentiated by imaging alone. Reviewed by: Gwen Vasquez MD, PhD on 09/27/2021 11:59 AM [facility] Approved by: Gwen Vasquez MD, PhD on 09/27/2021 11:59 AM [facility] Station ID: [id number]
== END 2021-09-27 11:10 | disposition home or self-care (01) ==
LOC: DI 11:09
PROVIDERS: ATTEND Registered Nurse
DX: R19.00 Intra-abdominal and pelvic swelling, mass and lump, unspecified site (principal); Z90.3 Acquired absence of stomach [part of]
CPT/HCPCS: 74177; Q9967